=== PATIENT | female | born 1940 | race Caucasian/White ===

== ENCOUNTER 2020-05-22 10:29 | Emergency (ER) | payer MEDICARE ==
[2020-05-22 10:51] LABS: BASOPHILS % (AUTO) 0.8 % (0.0-5.0); HEMATOCRIT 39.8 % (36-48); LYMPHOCYTES % (AUTO) 29.1 % (21.0-51.0); MEAN CORPUSCULAR HEMOGLOBIN 31.5 pg (27.0-33.0); MEAN CORPUSCULAR HGB CONC 33.2 g/dL (32.0-36.0); MONOCYTES % (AUTO) 8.9 % (3.0-13.0); PLATELET COUNT (AUTO) 279 K/uL (130-400); RED BLOOD CELL COUNT(AUTO) 4.19 MIL/uL (4.00-5.50); RED CELL DISTRIBUTION WIDTH 13.2 % (11.0-15.5); WHITE BLOOD COUNT (AUTO) 5.1 K/uL (4.8-10.8)
[2020-05-22 10:57] LABS: CREATININE 0.7 mg/dL (0.5-1.5); POTASSIUM 3.9 mmol/L (3.5-5.1)
[2020-05-22 10:58] LABS: INR 0.94 (0.85-1.15); PARTIAL THROMBOPLASTIN TIME 29.4 SEC (26.3-35.5); PROTHROMBIN TIME 10.2 SEC (9.6-11.6)
[2020-05-22 11:02] LABS: ALBUMIN 3.5 g/dL (3.5-5.0); BILIRUBIN,TOTAL 0.3 mg/dL (0.2-1.0)
[2020-05-22 12:44] LABS: APPEARANCE,URINE Clear (CLEAR); BILIRUBIN,URINE Negative (NEGATIVE); COLOR,URINE Yellow (YELLOW); GLUCOSE, URINE (UA) Negative (NEGATIVE); KETONES,URINE Trace mg/dL (NEGATIVE); LEUKOCYTE ESTERASE ,URINE Negative (NEGATIVE); NITRATE,URINE Negative (NEGATIVE); OCCULT BLOOD,URINE Negative (NEGATIVE); PROTEIN,URINE Negative (NEGATIVE); UROBILINOGEN,URINE 0.2 mg/dL (0.2-1.0)
== END 2020-05-22 15:00 | disposition home or self-care (01) ==
LOC: EDH 10:29
DX: R07.89 Other chest pain (principal); I48.91 Unspecified atrial fibrillation; E78.5 Hyperlipidemia, unspecified; I10 Essential (primary) hypertension; M81.0 Age-related osteoporosis without current pathological fracture
CPT/HCPCS: 36415; 71045; 80053; 81003; 82550; 84484; 85025; 85610; 85730; 93005

== ENCOUNTER 2023-10-31 22:05 | Observation (INO) | payer MEDICARE ==
[~2023-10-31] VITALS: Ht 160 cm; Wt 68.1 kg
[2023-10-31 22:48] LABS: BASOPHILS # (AUTO) 0.04 K/uL (0.00-0.20); BASOPHILS % (AUTO) 0.6 % (0.0-5.0); EOSINOPHILS # (AUTO) 0.06 K/uL (0.00-0.70); HEMATOCRIT 41.6 % (36-48); IMMATURE GRANULOCYTE ABSOLUTE 0.02 K/uL (0-1); LYMPHOCYTES # (AUTO) 1.5 K/uL (1.0-4.8); LYMPHOCYTES % (AUTO) 23.8 % (21.0-51.0); MEAN CORPUSCULAR HEMOGLOBIN 32.5 pg (27.0-33.0); MEAN CORPUSCULAR HGB CONC 34.1 g/dL (32.0-36.0); MEAN CORPUSCULAR VOLUME 95.2 fL (79-99); MONOCYTES # (AUTO) 0.7 K/uL (0.1-1.0); MONOCYTES % (AUTO) 10.8 % (3.0-13.0); NEUTROPHILS % (AUTO) 63.5 % (40.0-77.0); PLATELET COUNT (AUTO) 293 K/uL (130-400); RED BLOOD CELL COUNT(AUTO) 4.37 MIL/uL (4.00-5.50); RED CELL DISTRIBUTION WIDTH 13.8 % (11.0-15.5); WHITE BLOOD COUNT (AUTO) 6.3 K/uL (4.8-10.8)
[2023-10-31 23:28] LABS: ALBUMIN 3.4 g/dL (3.5-5.0); BILIRUBIN,TOTAL 0.3 mg/dL (0.2-1.0); CREATININE 0.9 mg/dL (0.5-1.0); TOTAL PROTEIN, SERUM 6.7 g/dL (6.0-8.3)
[2023-11-01 00:05] LABS: POTASSIUM 3.8 mmol/L (3.5-5.1)
[2023-11-01] MEDS ORDERED: ACETAMINOPHEN 325 MG TAB PO PRN (02:30)
[2023-11-01 06:30] LABS: BASOPHILS # (AUTO) 0.03 K/uL (0.00-0.20); BASOPHILS % (AUTO) 0.6 % (0.0-5.0); EOSINOPHILS # (AUTO) 0.05 K/uL (0.00-0.70); EOSINOPHILS % (AUTO) 0.9 % (0.0-8.0); HEMATOCRIT 38.6 % (36-48); IMMATURE GRANULOCYTE ABSOLUTE 0.01 K/uL (0-1); LYMPHOCYTES # (AUTO) 1.7 K/uL (1.0-4.8); LYMPHOCYTES % (AUTO) 32.2 % (21.0-51.0); MEAN CORPUSCULAR HEMOGLOBIN 31.8 pg (27.0-33.0); MEAN CORPUSCULAR HGB CONC 34.2 g/dL (32.0-36.0); MONOCYTES # (AUTO) 0.6 K/uL (0.1-1.0); MONOCYTES % (AUTO) 11.2 % (3.0-13.0); NEUTROPHILS # (AUTO) 2.9 K/uL (1.8-7.7); NEUTROPHILS % (AUTO) 54.9 % (40.0-77.0); PLATELET COUNT (AUTO) 294 K/uL (130-400); RED BLOOD CELL COUNT(AUTO) 4.15 MIL/uL (4.00-5.50); WHITE BLOOD COUNT (AUTO) 5.3 K/uL (4.8-10.8)
[2023-11-01] MEDS ORDERED: CALC-1125 PO (06:37)
[2023-11-01] MEDS ORDERED: SIMV-343 PO (06:37)
[2023-11-01] MEDS ORDERED: VITAMIN D PO (06:37)
[2023-11-01] MEDS ORDERED: METO100T7 PO (06:37)
[2023-11-01] MEDS ORDERED: APIX5TAB PO (06:37)
[2023-11-01] MEDS ORDERED: MULT-1367 PO (06:37)
[2023-11-01] MEDS ORDERED: AMLO1CAP6 PO (06:37)
[2023-11-01] MEDS: ACETAMINOPHEN 325 MG TAB PO PRN (06:44)
[2023-11-01] MEDS: ONDANSETRON 4MG INJ IV PRN (06:44)
[2023-11-01 06:53] LABS: ALBUMIN 3.1 g/dL (3.5-5.0); BILIRUBIN,TOTAL 0.5 mg/dL (0.2-1.0); CREATININE 0.7 mg/dL (0.5-1.0); MAGNESIUM 1.8 mg/dL (1.80-2.40); POTASSIUM 4.1 mmol/L (3.5-5.1); THYROID STIMULATING HORMONE 2.03 uIU/mL (0.36-3.74); TOTAL PROTEIN, SERUM 6.1 g/dL (6.0-8.3)
[2023-11-01] MEDS: FAMOTIDINE 20MG VIAL IV SCH (07:46)
[2023-11-01] MEDS: APIXABAN 5 MG TABLET PO SCH (07:46)
[2023-11-01] MEDS: METOPROLOL SUCCINATE 50 MG TAB.SR.24H PO SCH (07:46)
[2023-11-01] MEDS ORDERED: ENOXAPARIN SODIUM 30 MG/0.3 ML SQ SCH (09:00)
[2023-11-01] MEDS ORDERED: NON-FORMULARY MEDICATION 1 EACH (Metoprolol Succinate (Toprol Xl) 100 MG) PO SCH (09:00)
[2023-11-01] MEDS ORDERED: SOTALOL HCL 80 MG TABLET PO ONE (13:30)
[2023-11-01] MEDS ORDERED: SOTALOL HCL 80 MG TABLET PO SCH ×2 (13:30→21:00)
[2023-11-01 14:10] VITALS: BP 142/80; PULSE 99; RESP 20
[2023-11-01] MEDS: AMIODARONE 900MG VIAL 150 MG in DEXTROSE 5%-WATER 100 ML IV ONE (14:45)
[2023-11-01] MEDS: AMIODARONE 900MG VIAL 360 MG in DEXTROSE 5%-WATER 200 ML IV ONE (14:45)
[2023-11-01 15:15] VITALS: O2SAT 96
[2023-11-01 16:00] VITALS: BP 135/94; PULSE 94; RESP 20
[2023-11-01 20:00] VITALS: BP 119/83; PULSE 85; RESP 22; O2SAT 96
[2023-11-01] MEDS: AMIODARONE 900MG VIAL 540 MG in DEXTROSE 5%-WATER 300 ML IV SCH (20:54)
[2023-11-01 22:19] VITALS: BP 143/94; PULSE 88
[2023-11-01 23:57] VITALS: BP 129/73; PULSE 99; RESP 20
[2023-11-02] MEDS: NITROGLYCERIN 1GM OINT 1 INCH/1GM TD SCH (02:10)
[2023-11-02 02:16] LABS: HEMATOCRIT 42.5 % (36-48); MEAN CORPUSCULAR HEMOGLOBIN 32.4 pg (27.0-33.0); MEAN CORPUSCULAR HGB CONC 33.4 g/dL (32.0-36.0); RED BLOOD CELL COUNT(AUTO) 4.38 MIL/uL (4.00-5.50); WHITE BLOOD COUNT (AUTO) 6.3 K/uL (4.8-10.8)
[2023-11-02 02:31] LABS: CREATININE 0.7 mg/dL (0.5-1.0); MAGNESIUM 1.9 mg/dL (1.80-2.40); POTASSIUM 4.6 mmol/L (3.5-5.1)
[2023-11-02 03:25] VITALS: BP 127/83; PULSE 87; RESP 21
[2023-11-02] MEDS: METOPROLOL SUCCINATE 50 MG TAB.SR.24H PO SCH (05:45)
[2023-11-02] MEDS: METOPROLOL SUCCINATE 50 MG TAB.SR.24H PO ONE (05:46)
[2023-11-02 07:00] VITALS: BP 134/89; PULSE 75; RESP 20
[2023-11-02 08:30] VITALS: O2SAT 95
[2023-11-02] MEDS ORDERED: METO-391 PO (10:48)
[2023-11-02] MEDS ORDERED: AMIO200T68 PO (10:48)
[2023-11-02 11:00] VITALS: BP 127/78; PULSE 51; RESP 14
[2023-11-02] MEDS: FENTANYL CITRATE PF 50 MCG/1 ML 2ML VIAL IVP ONE (11:08)
[2023-11-02] MEDS: MIDAZOLAM HCL 1 MG/ML 2ML VIAL IVP ONE (11:08)
== END 2023-11-02 14:42 | disposition home or self-care (01) ==
LOC: EDH 22:05 → EDHIP 11-01 02:30 → INTOOBSV 11-01 02:30 → 2DH 11-01 12:47
PROVIDERS: ADMIT Internal Medicine; ATTEND Internal Medicine
DX: I48.19 Other persistent atrial fibrillation (principal); I10 Essential (primary) hypertension; E78.5 Hyperlipidemia, unspecified; E78.00 Pure hypercholesterolemia, unspecified; Z79.01 Long term (current) use of anticoagulants; Z79.84 Long term (current) use of oral hypoglycemic drugs; Z79.899 Other long term (current) drug therapy
CPT/HCPCS: 99285; 71045; 84484 ×2; 80053 ×2; 85025 ×2; 36415 ×3; 93005 ×3; 93306; 96365; 96375; 96366 ×2; 96376; 84443; 83735 ×2; 92960; 80048; 85027; J3490 ×2; J7060 ×3; J2405; J0282 ×3; G0378; J3010; J2250; 99152; G0500

== ENCOUNTER → 2024-04-28 | Outpatient (CLI) | payer MEDICARE ==
[~2024-04-28] MED LIST: AMIO200T68 PO; AMLO1CAP6 PO; APIX5TAB PO; CALC-1125 PO; GADOTERATE MEGLUMINE 10 MMOL/20 ML VIAL IV ONE; METO-391 PO; MULT-1367 PO; SIMV-343 PO; VITAMIN D PO
== END | disposition home or self-care (01) ==
LOC: RAH 12:47 → EDSTATUS 13:00
PROVIDERS: ATTEND Physician Assistant Medical
DX: H55.00 Unspecified nystagmus (principal)
CPT/HCPCS: 70553; 70543; A9575